=== PATIENT | male | born 1960 | race Caucasian/White ===

== ENCOUNTER 2025-03-24 11:19 | Emergency (ER) | payer MEDICARE ==
[2025-03-24] MEDS ORDERED: Sodium Chloride 0.9% 10 ML Syringe FLUSH PRN (11:49)
[2025-03-24 12:17] LABS: BASOPHILS PERCENT AUTO 0.2 % (0.0-1.0); HEMOGLOBIN 14.8 g/dL (14.0-18.0); LYMPHOCYTES PERCENT AUTO 4.9 % (20.5-50.1); MONOCYTES PERCENT AUTO 2.8 % (2-8); NEUTROPHILS PERCENT AUTO 92.1 % (42.2-75.2); PLATELET COUNT,PLT 145 10^3/uL (150-450); RED BLOOD CELL COUNT 4.35 10^6/uL (4.6-6.2); WHITE BLOOD CELL COUNT,WBC 9.8 10^3/uL (5.0-10.0)
[2025-03-24 12:40] LABS: INR 1.1 (0.9-1.2); PROTHROMBIN TIME 11.4 SEC (9.0-12.0)
[2025-03-24 12:43] LABS: APPEARANCE,URINE SLIGHTLY CLOUDY (CLEAR); BILIRUBIN,URINE SMALL (NEGATIVE); COLOR,URINE DARK YELLOW (YELLOW); GLUCOSE,URINE NEGATIVE (NEGATIVE); KETONES,URINE TRACE (NEGATIVE); LEUKOCYTE ESTERASE,URINE NEGATIVE (NEGATIVE); NITRITE,URINE NEGATIVE (NEGATIVE); OCCULT BLOOD,URINE MODERATE (NEGATIVE); PROTEIN,URINE >=300 (NEGATIVE)
[2025-03-24 12:43] LABS: ALANINE AMINOTRANSFERASE,ALT 34 U/L (16-63); ALBUMIN 2.7 g/dL (3.4-5.0); ALKALINE PHOSPHATASE 85 U/L (46-116); ANION GAP 13.2 mEq/L (7-13); ASPARTATE AMNIOTRANSFERASE,AST 49 U/L (15-37); BILIRUBIN TOTAL 1.5 mg/dL (0.2-1.0); BLOOD UREA NITROGEN,BUN 13 mg/dL (7-18); BUN/CREATININE RATIO 12.5 (No establ ref range); CALCIUM 8.1 mg/dL (8.5-10.1); CARBON DIOXIDE,CO2 27 mmol/L (21-32); CHLORIDE,CL 90 mmol/L (98-107); CREATININE 1.04 mg/dL (0.70-1.30); EST CRCL DRUG DOSING (CG) 78.96 mL/min; GLUCOSE RANDOM 116 mg/dL (70-99); POTASSIUM,K 3.2 mmol/L (3.5-5.1); PROTEIN TOTAL,TP 6.8 g/dL (6.4-8.2); SODIUM,NA 127 mmol/L (136-145)
[2025-03-24 12:44] LABS: A/G RATIO 0.66; ESTIMATED GFR 79 mL/min (>=60); MAGNESIUM 0.9 mg/dL (1.8-2.4)
[2025-03-24 12:45] LABS: C-REACTIVE PROTEIN > 25.00 ng/dL (<=0.50)
[2025-03-24] MEDS ORDERED: Magnesium Sulfate 4 GM/100 mL 4 GM in Premix Bag 1 BAG IV ONE (12:45)
[2025-03-24] MEDS: Potassium Chloride 10 MEQ Tab.ER PO ONE (12:55)
[2025-03-24] MEDS: Lactated Ringers 1,000 ML IV SCH (12:56)
[2025-03-24 13:03] LABS: BACTERIA,URINE FEW /HPF (0-FEW/HPF); EPITHELIAL CELLS,URINE FEW /HPF (NOT SEEN); MUCUS,URINE MODERATE /LPF (NOT SEEN); WBC,URINE 0-5 /HPF (0-5/HPF)
[2025-03-24] MEDS: Iopamidol 755 Mg/ML 100 ML Bottle IVPUSH ONE (13:10)
[2025-03-24] MEDS: Levofloxacin/Dextrose 5%-Water 750 MG in Premix Bag 1 BAG IV ONE (14:43)
== END 2025-03-24 17:05 | disposition home or self-care (01) ==
LOC: DL.ED 11:19
DX: J96.01 Acute respiratory failure with hypoxia (principal); J18.9 Pneumonia, unspecified organism; R91.8 Other nonspecific abnormal finding of lung field; E83.42 Hypomagnesemia; E87.6 Hypokalemia
CPT/HCPCS: 36415; 71046; 71275; 74177; 80053; 81001; 83605; 83735; 84484; 85025; 85379; 85610; 86140; 93005; 96361; 96365; 96366; 96367; 99285; A9270; J1956; J3475; J7120; Q9967